=== PATIENT | female | born 1935 | race Caucasian/White ===

== ENCOUNTER 2023-12-18 19:15 | Inpatient (IN) | payer MEDICARE, BC ==
[~2023-12-18] VITALS: Ht 198.1 cm; Wt 60.8 kg
[2023-12-18] MEDS ORDERED: methylPREDNISolone SOD SUCC 125 MG/2ML VIAL ONE (19:37)
[2023-12-18] MEDS ORDERED: ALBUTEROL FS 2.5 MG/3 ML VIAL.NEB ONE (19:40)
[2023-12-18] MEDS ORDERED: IPRATROPIUM NEB FS 0.5 MG/2.5 ML AMPUL.NEB ONE (19:40)
[2023-12-18] MEDS: methylPREDNISolone SOD SUCC 125 MG/2ML VIAL IV ONE (19:42)
[2023-12-18 19:44] VITALS: O2SAT 99
[2023-12-18] MEDS: ALBUTEROL FS 2.5 MG/3 ML VIAL.NEB NEB ONE (19:47)
[2023-12-18] MEDS: IPRATROPIUM NEB FS 0.5 MG/2.5 ML AMPUL.NEB NEB ONE (19:47)
[2023-12-18 19:49] VITALS: O2SAT 99
[2023-12-18 19:54] LABS: BASOPHILS # (AUTO) 0.1 K/uL (0.0-0.2); EOSINOPHILS # (AUTO) 0.4 K/uL (0.0-0.7); EOSINOPHILS % (AUTO) 3.3 % (0.0-6.0); HEMATOCRIT 41 % (33-45); HEMOGLOBIN 13.5 g/dL (11.5-14.8); LYMPHOCYTES # (AUTO) 1.2 K/uL (0.8-4.8); LYMPHOCYTES % (AUTO) 11.1 % (20.0-44.0); MEAN CORPUSCULAR HEMOGLOBIN 28 PG (26.0-33.0); MEAN CORPUSCULAR HGB CONC 33 g/dl (31.0-36.0); MEAN CORPUSCULAR VOLUME 86 fL (82-100); MONOCYTES % (AUTO) 9.9 % (2.0-12.0); NEUTROPHILS # (AUTO) 7.8 K/uL (1.8-8.9); NEUTROPHILS % (AUTO) 74.7 % (43.0-81.0); PLATELET COUNT (AUTO) 420 K/uL (150-450); RED BLOOD CELL COUNT(AUTO) 4.78 MIL/uL (4.0-5.2); RED CELL DISTRIBUTION WIDTH 15.8 % (11.5-15.0); WHITE BLOOD COUNT (AUTO) 10.5 K/uL (4.3-11.0)
[2023-12-18 19:59] VITALS: O2SAT 98
[2023-12-18 20:02] LABS: CALCIUM, SERUM 8.9 mg/dL (8.5-10.1); CARBON DIOXIDE 39 mmol/L (21-32); CHLORIDE 98 mmol/L (98-107); CREATININE 0.7 mg/dL (0.6-1.3); GLUCOSE 133 mg/dL (74-106); POTASSIUM 4.6 mmol/L (3.5-5.1); SODIUM SERUM 137 mmol/L (136-145); UREA NITROGEN, BLOOD 13 mg/dL (7-18)
[2023-12-18 20:08] LABS: ALANINE AMINOTRANSFERASE 20 U/L (12-78); ALBUMIN 3.3 g/dL (3.4-5.0); ALKALINE PHOSPHATASE 210 U/L (46-116); ASPARTATE AMINOTRANSFERASE 19 U/L (15-37); BILIRUBIN,TOTAL 0.3 mg/dL (0.2-1.0); TOTAL PROTEIN, SERUM 6.9 g/dL (6.4-8.2)
[2023-12-18 21:12] LABS: ABG BASE EXCESS 10.3 mmol/L (-2.0-3.0); ABG OXYGEN SATURATION 97.9 % (94.0-98.0); ABG PH 7.391 (7.350-7.450); ABG PO2 104.4 mmHg (83.0-108.0); ABG TOTAL HEMOGLOBIN 14.4 G/dL (12.0-16.0); COHb 0.1 % (0.5-1.5); MetHb 0.4 % (0.0-1.5); O2Hb 97.4 % (94.0-97.0); SITE, ABG LEFT RADIAL
[2023-12-18] MEDS ORDERED: ONDANSETRON HCL/PF 4 MG/2 ML VIAL IVP PRN (21:30)
[2023-12-18] MEDS ORDERED: MAG HYDROX/AL HYDROX/SIMETH 30 ML UDC PO PRN (21:30)
[2023-12-18] MEDS ORDERED: Z GUARD REMEDY 4 OZ OINT TP PRN (21:30)
[2023-12-19] VITALS (11 sets, daily range): BP systolic 140–154; BP diastolic 50–82; TEMP 97.7–98.4; O2SAT 94–99
[2023-12-19] MEDS: ALBUTEROL FS 2.5 MG/3 ML VIAL.NEB NEB PRN (03:54)
[2023-12-19] MEDS: IPRATROPIUM NEB FS 0.5 MG/2.5 ML AMPUL.NEB NEB PRN (03:54)
[2023-12-19] MEDS: methylPREDNISolone SOD SUCC 40 MG/ML VIAL IV SCH (04:13)
[2023-12-19] MEDS: PANTOPRAZOLE 40 MG TABLET.DR PO SCH (07:35)
[2023-12-19 07:41] LABS: BASOPHILS # (AUTO) 0.1 K/uL (0.0-0.2); BASOPHILS % (AUTO) 0.6 % (0.0-2.0); HEMATOCRIT 38 % (33-45); HEMOGLOBIN 12.6 g/dL (11.5-14.8); LYMPHOCYTES # (AUTO) 0.2 K/uL (0.8-4.8); LYMPHOCYTES % (AUTO) 2.7 % (20.0-44.0); MEAN CORPUSCULAR HEMOGLOBIN 28 PG (26.0-33.0); MEAN CORPUSCULAR HGB CONC 33 g/dl (31.0-36.0); MEAN CORPUSCULAR VOLUME 84 fL (82-100); MONOCYTES # (AUTO) 0.2 K/uL (0.1-1.30); MONOCYTES % (AUTO) 1.8 % (2.0-12.0); NEUTROPHILS # (AUTO) 8.7 K/uL (1.8-8.9); NEUTROPHILS % (AUTO) 94.9 % (43.0-81.0); PLATELET COUNT (AUTO) 345 K/uL (150-450); RED BLOOD CELL COUNT(AUTO) 4.49 MIL/uL (4.0-5.2); RED CELL DISTRIBUTION WIDTH 16.1 % (11.5-15.0); WHITE BLOOD COUNT (AUTO) 9.2 K/uL (4.3-11.0)
[2023-12-19] MEDS ORDERED: ROFL500T PO (07:59)
[2023-12-19] MEDS ORDERED: LEVO50TA8 PO (07:59)
[2023-12-19] MEDS ORDERED: AMLO-212 PO (07:59)
[2023-12-19] MEDS ORDERED: ALBU8.5H8 IH (07:59)
[2023-12-19] MEDS ORDERED: FLUT1BLS IH (07:59)
[2023-12-19] MEDS ORDERED: SERT100T PO (07:59)
[2023-12-19] MEDS ORDERED: TIOT18CA3 IH (07:59)
[2023-12-19 08:21] LABS: CARBON DIOXIDE 34 mmol/L (21-32); CHLORIDE 101 mmol/L (98-107); CREATININE 0.7 mg/dL (0.6-1.3); GLUCOSE 218 mg/dL (74-106); MAGNESIUM 2.3 mg/dL (1.8-2.4); PHOSPHORUS 2.6 mg/dL (2.5-4.9); SODIUM SERUM 140 mmol/L (136-145); UREA NITROGEN, BLOOD 14 mg/dL (7-18)
[2023-12-19] MEDS ORDERED: FLUT16SP BNOSTRILS (09:16)
[2023-12-19] MEDS: LEVOFLOXACIN (250MG) 250 MG TABLET PO SCH (11:06)
[2023-12-19] MEDS: ENOXAPARIN SODIUM 40 MG/0.4 ML DISP.SYRIN SQ SCH (11:08)
[2023-12-19] MEDS: IPRATROPIUM NEB FS 0.5 MG/2.5 ML AMPUL.NEB NEB SCH (11:17)
[2023-12-19] MEDS: ALBUTEROL FS 2.5 MG/3 ML VIAL.NEB NEB SCH (11:18)
[2023-12-19] MEDS: FLUTICASONE PROPIONATE 16 GM BOTTLE NS SCH (11:21)
[2023-12-20] VITALS (12 sets, daily range): BP systolic 140–156; BP diastolic 60–82; TEMP 97.7–98.2; O2SAT 91–100
[2023-12-20] MEDS: SERTRALINE HCL 50 MG TABLET PO SCH (12:52)
[2023-12-20] MEDS: AMLODIPINE BESYLATE 5 MG TABLET PO SCH (12:52)
[2023-12-20] MEDS ORDERED: FLUTICASONE PROPIONATE 16 GM BOTTLE NS SCH (13:00)
[2023-12-20] MEDS ORDERED: IPRATROPIUM NEB FS 0.5 MG/2.5 ML AMPUL.NEB NEB SCH (13:30)
[2023-12-20] MEDS ORDERED: ALBUTEROL FS 2.5 MG/0.5 ML VIAL.NEB NEB SCH (13:30)
[2023-12-20] MEDS: BUDESONIDE RESPULE INH 0.5 MG/2 ML AMPUL.NEB NEB SCH (20:04)
[2023-12-21] VITALS (12 sets, daily range): BP systolic 138–155; BP diastolic 59–81; TEMP 98.1–99.7; O2SAT 92–99
[2023-12-21 07:35] LABS: BASOPHILS # (AUTO) 0.1 K/uL (0.0-0.2); BASOPHILS % (AUTO) 0.4 % (0.0-2.0); HEMATOCRIT 38 % (33-45); HEMOGLOBIN 12.6 g/dL (11.5-14.8); LYMPHOCYTES # (AUTO) 0.3 K/uL (0.8-4.8); LYMPHOCYTES % (AUTO) 1.8 % (20.0-44.0); MEAN CORPUSCULAR HEMOGLOBIN 28 PG (26.0-33.0); MEAN CORPUSCULAR HGB CONC 33 g/dl (31.0-36.0); MEAN CORPUSCULAR VOLUME 86 fL (82-100); MONOCYTES # (AUTO) 1.3 K/uL (0.1-1.30); NEUTROPHILS # (AUTO) 14.2 K/uL (1.8-8.9); NEUTROPHILS % (AUTO) 89.8 % (43.0-81.0); PLATELET COUNT (AUTO) 400 K/uL (150-450); RED BLOOD CELL COUNT(AUTO) 4.46 MIL/uL (4.0-5.2); RED CELL DISTRIBUTION WIDTH 16.8 % (11.5-15.0); WHITE BLOOD COUNT (AUTO) 15.8 K/uL (4.3-11.0)
[2023-12-21 08:01] LABS: CALCIUM, SERUM 8.5 mg/dL (8.5-10.1); CARBON DIOXIDE 32 mmol/L (21-32); CHLORIDE 105 mmol/L (98-107); CREATININE 0.5 mg/dL (0.6-1.3); GLUCOSE 123 mg/dL (74-106); POTASSIUM 4.5 mmol/L (3.5-5.1); SODIUM SERUM 143 mmol/L (136-145); UREA NITROGEN, BLOOD 29 mg/dL (7-18)
[2023-12-21] MEDS: LEVOTHYROXINE SODIUM 50 MCG TABLET PO SCH (08:29)
[2023-12-21] MEDS ORDERED: ROFLUMILAST 500 MG PO SCH (09:00)
[2023-12-21] MEDS: ACETAMINOPHEN 325 MG TABLET PO PRN (17:01)
[2023-12-21] MEDS: FLUTICASONE PROPIONATE 16 GM BOTTLE NS PRN (21:14)
[2023-12-22] VITALS (12 sets, daily range): BP systolic 61–152; BP diastolic 71–86; TEMP 97.5–98.6; O2SAT 92–98
[2023-12-22] MEDS: methylPREDNISolone SOD SUCC 40 MG/ML VIAL IV SCH (08:55)
[2023-12-22] MEDS: MAGNESIUM HYDROXIDE 30 ML UDC PO PRN (22:58)
[2023-12-23] VITALS (7 sets, daily range): BP systolic 137–157; BP diastolic 64–88; TEMP 97.7–98; O2SAT 92–98
[2023-12-23 11:40] LABS: ABG BASE EXCESS 8.6 mmol/L (-2.0-3.0); ABG OXYGEN SATURATION 94.2 % (94.0-98.0); ABG PH 7.422 (7.350-7.450); ABG PO2 70.9 mmHg (83.0-108.0); ABG TOTAL HEMOGLOBIN 14.7 G/dL (12.0-16.0); COHb 0.1 % (0.5-1.5); MetHb 0.4 % (0.0-1.5); O2Hb 93.7 % (94.0-97.0); SITE, ABG LEFT RADIAL
[2023-12-23] MEDS ORDERED: METH4TAB17 PO (12:21)
[2023-12-23] MEDS ORDERED: BISACODYL SUPP (10 MG) 10 MG/SUPP.RECT SUPP.RECT RC PRN (13:00)
[2023-12-23] MEDS: LACTULOSE 10 G/15 ML UDC (PYXIS) PO ONE (13:45)
== END 2023-12-23 17:26 | disposition home or self-care (01) | DRG 190 ==
LOC: ER 19:18 → MEDSG1 22:08
PROVIDERS: ADMIT Nurse Practitioner Family; ATTEND Nurse Practitioner Acute Care
PROC: 5A09457 Assistance with Respiratory Ventilation, 24-96 Consecutive Hours, Continuous Positive Airway Pressure (ICD-10-PCS; principal; 2023-12-19)
DX: J44.1 Chronic obstructive pulmonary disease with (acute) exacerbation (principal); J96.21 Acute and chronic respiratory failure with hypoxia; J96.22 Acute and chronic respiratory failure with hypercapnia; E46 Unspecified protein-calorie malnutrition; E88.09 Other disorders of plasma-protein metabolism, not elsewhere classified; F17.200 Nicotine dependence, unspecified, uncomplicated; Z99.81 Dependence on supplemental oxygen; R73.9 Hyperglycemia, unspecified; Z79.51 Long term (current) use of inhaled steroids; Z79.899 Other long term (current) drug therapy; Z79.890 Hormone replacement therapy
CPT/HCPCS: 36415; 36600; 71045-TC; 71250-TC; 80048-TC; 80076-TC; 82040-TC; 82803-TC; 83735-TC; 84100-TC; 85025-TC; 94760-TC; 94762-TC; 94799-TC; 97110-TC; 97112-TC; 97116-TC; 97530-TC; G0378; J1650; J2919